=== PATIENT | male | born 1945 | race Caucasian/White ===

== ENCOUNTER 2016-08-13 15:16 | Outpatient (CLI) | payer MEDICARE, MEDICAID ==
[2016-08-13 15:47] LABS: #Basophils 0.1 thou/uL (0.0-0.2); #Eosinphils 0.4 thou/uL (0.0-0.7); #Lymphocytes 1.8 thou/uL (1.20-3.40); #Monocytes 0.5 thou/uL (0.11-0.59); #Neutrophils 5.1 thou/uL (1.40-6.50); %Basophils 1.4 % (0.0-1.0); %Eosinophils 5.2 % (0.0-10.0); %Lymphocytes 22.1 % (21.0-51.0); %Monocytes 6.7 % (0.0-10.0); %Neutrophils 64.6 % (42.0-75.0); Hemoglobin 14.6 g/dL (14.0-18.0); Mean Corpuscular HGB CONC 34.9 g/dL (32.0-36.0); Mean Corpuscular Hemoglobin 30.4 pg (27.0-31.0); Mean Corpuscular Volume 87.1 fl (80.0-94.0); Mean Platelet Volume 10.8 fL (7.4-10.4); Platelet Count 176 thou/uL (130-400); RBC Distribution Width 11.9 % (11.5-14.5); White Blood Cell (WBC) Count 7.9 thou/uL (4.8-10.8)
[2016-08-13 16:12] LABS: Hemoglobin A1c 6.2 % (4.0-6.0)
[2016-08-13 16:17] LABS: ALT (SGPT) 18 U/L (8-55); AST (SGOT) 23 U/L (5-34); Albumin 4.3 g/dL (3.4-4.8); Alkaline Phosphatase 82 U/L (40-150); Anion Gap 15 mmol/L (10-20); BUN (Urea Nitrogen) 14 mg/dL (8.4-25.7); Bilirubin, Total 0.6 mg/dL (0.2-1.2); Calc. Creatinine Clearance 0 mL/min (70-130); Calcium 9.5 mg/dL (7.8-10.44); Carbon Dioxide 25 mmol/L (23-31); Cardiac Risk 4.3 (Less than 4.5); Chloride 107 mmol/L (98-107); Cholesterol 169 mg/dl (< 200 Desired); Estimated GFR-MDRD 44; Globulin 2.6 g/dL (2.4-3.5); Glucose 120 mg/dL (80-115); HDL Cholesterol 39 mg/dL (>60 Neg Risk); LDL Cholesterol, Calculated 64 mg/dL; Potassium 5.7 mmol/L (3.5-5.1); Protein, Total 6.9 g/dL (5.8-8.1); Sodium 141 mmol/L (136-145); Triglycerides 329 mg/dL (Less than 150)
== END 2016-08-13 15:17 | disposition home or self-care (01) ==
LOC: HPCALD 15:16
PROVIDERS: ATTEND Family Medicine
DX: Z12.5 Encounter for screening for malignant neoplasm of prostate (principal); E11.9 Type 2 diabetes mellitus without complications; I10 Essential (primary) hypertension
CPT/HCPCS: 36415; 80053; 80061; 83036; 85025; G0103

== ENCOUNTER 2017-06-07 15:22 | Outpatient (CLI) | payer MEDICARE, MEDICAID ==
--- NOTE | 2017-06-07 16:09 | RAD ---
RIGHT FOOT 3 VIEWS: HISTORY: A 71-year-old male with a history of right heel pain. FINDINGS: Small calcaneal plantar and slightly more moderate-size calcaneal Achilles enthesophytes are noted. No acute fracture or dislocation or other acute process. IMPRESSION: Calcaneal plantar and Achilles enthesophytes. No other acute process. POS: [facility]
--- NOTE | 2017-06-07 16:27 | RAD ---
RADIOGRAPH RIGHT HIP 2 VIEWS: DATE: 06/07/17. HISTORY: A 71-year-old male with right hip pain, M25.551. COMPARISON: None available. FINDINGS: Femoral head contour is maintained. No subcapital osteophytes. Mild bony hypertrophy of the acetabu lar roof. Hip joint space maintained. No major pathology of right SI joint. No fracture or disloca tion. Small subchondral cysts at the superolateral aspect of the acetabulum. IMPRESSION: 1. 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 2. Otherwise, negative. POS: [facility]
--- NOTE | 2017-06-07 17:17 | RAD ---
RADIOGRAPH RIGHT FEMUR TWO VIEWS: 06/07/2017 HISTORY: A 71-year-old male with right thigh pain. FINDINGS: No osteolytic lesion, osteoblastic lesion, permeative lesion, periosteal elevation, or fracture invol ving the femoral diaphysis. No adjacent soft tissue calcifications. IMPRESSION: Negative. POS: [facility]
== END 2017-06-07 15:23 | disposition home or self-care (01) ==
LOC: BURRAD 15:22
PROVIDERS: ATTEND Family Medicine
DX: M25.551 Pain in right hip (principal); M79.671 Pain in right foot; M16.11 Unilateral primary osteoarthritis, right hip; M77.51 Other enthesopathy of right foot and ankle

== ENCOUNTER 2018-06-16 10:00 | Outpatient (CLI) | payer MEDICARE, MEDICAID ==
--- NOTE | 2018-06-16 19:58 | ULT ---
BILATERAL RENAL ULTRASOUND 06/16/18 Ultrasonography of the urinary tract was performed for evaluation of this patient with chronic kidney disease. The right kidney measures 8.4 x 4.6 x 4.0 cm. The cortex does not seem significantly thinned or echog enic. No solid masses were seen. There is a small 1.5 cm cyst associated with the kidney. No hydronep hrosis is present. The left kidney measures 9.2 x 4.6 x 3.5 cm. It similarly shows no cortical thinning or increased ech ogenicity. The bladder wall is uniformly thick at 4 mm, but the bladder is not well distended so this could be a spurious result. IMPRESSION: No evidence of acute urinary tract obstruction or other pathology of concern. Mild bladder wall thick ening that could be due to underdistention. POS: [facility]
== END 2018-06-16 10:01 | disposition home or self-care (01) ==
LOC: BURULT 10:00
PROVIDERS: ATTEND Internal Medicine Nephrology
DX: I12.9 Hypertensive chronic kidney disease with stage 1 through stage 4 chronic kidney disease, or unspecified chronic kidney disease (principal); N18.3 Chronic kidney disease, stage 3 (moderate); N32.89 Other specified disorders of bladder
CPT/HCPCS: 76770

== ENCOUNTER 2021-05-23 22:06 | Emergency (ER) | payer MEDICARE, MEDICAID ==
[2021-05-23] MEDS ORDERED: Metoclopramide HCl 10 MG/2 ML VIAL ONE (22:55)
[2021-05-23] MEDS ORDERED: diphenhydrAMINE 50 MG/ML VIAL ONE (22:56)
[2021-05-23] MEDS ORDERED: Dexamethasone 10 MG/ML VIAL ONE (22:56)
[2021-05-23 23:12] LABS: #Basophils 0.1 thou/uL (0.0-0.2); #Eosinphils 0.4 thou/uL (0.0-0.7); #Lymphocytes 1.7 thou/uL (1.20-3.40); #Monocytes 0.6 thou/uL (0.11-0.59); #Neutrophils 5.3 thou/uL (1.40-6.50); %Basophils 1.7 % (0.0-1.0); %Eosinophils 5.2 % (0.0-10.0); %Lymphocytes 21.2 % (21.0-51.0); Hemoglobin 15.7 g/dL (14.0-18.0); Mean Corpuscular HGB CONC 35.3 g/dL (32.0-36.0); Mean Corpuscular Hemoglobin 29.3 pg (27.0-31.0); Mean Corpuscular Volume 82.9 fL (78.0-98.0); Mean Platelet Volume 9.6 fL (7.4-10.4); Platelet Count 184 thou/uL (130-400); RBC Distribution Width 11.4 % (11.5-14.5); Red Blood Cell (RBC) Count 5.36 mill/uL (4.70-6.10); White Blood Cell (WBC) Count 8.2 thou/uL (4.8-10.8)
[2021-05-23 23:20] LABS: INR-International Normal Ratio 1.1; Prothrombin Time 14.1 sec (12.0-14.7)
[2021-05-23 23:52] LABS: ALT (SGPT) 10 U/L (8-55); AST (SGOT) 15 U/L (5-34); Albumin 4.1 g/dL (3.4-4.8); Alkaline Phosphatase 96 U/L (40-110); Anion Gap 17 mmol/L (10-20); BUN (Urea Nitrogen) 17 mg/dL (8.4-25.7); Bilirubin, Total 0.8 mg/dL (0.2-1.2); Calc. Creatinine Clearance 0 mL/min (70-130); Calcium 9.2 mg/dL (7.8-10.44); Carbon Dioxide 20 mmol/L (23-31); Chloride 106 mmol/L (98-107); Globulin 3.5 g/dL (2.4-3.5); Glucose 205 mg/dL (83-110); Potassium 4.2 mmol/L (3.5-5.1); Protein, Total 7.6 g/dL (5.8-8.1); Sodium 139 mmol/L (136-145)
== END 2021-05-23 23:54 | disposition home or self-care (01) ==
LOC: BURERS 22:06
DX: R51.9 Headache, unspecified (principal); I10 Essential (primary) hypertension; Z79.899 Other long term (current) drug therapy
CPT/HCPCS: 36415; 70450; 80053; 84484; 85025; 85610; 93005; 96374; 96375; J1100; J1200; J2765

== ENCOUNTER 2021-08-11 21:04 | Emergency (ER) | payer MEDICARE, OTHER ==
[2021-08-11] MEDS ORDERED: Ondansetron PF 4 MG/2 ML Vial ONE (21:10)
[2021-08-11 21:33] LABS: #Basophils 0.1 thou/uL (0.0-0.2); #Eosinphils 0.4 thou/uL (0.0-0.7); #Lymphocytes 1.8 thou/uL (1.20-3.40); #Monocytes 0.5 thou/uL (0.11-0.59); #Neutrophils 3.6 thou/uL (1.40-6.50); %Basophils 1.8 % (0.0-1.0); %Eosinophils 5.6 % (0.0-10.0); %Lymphocytes 27.6 % (21.0-51.0); %Monocytes 8.4 % (0.0-10.0); %Neutrophils 56.5 % (42.0-75.0); Hemoglobin 14.7 g/dL (14.0-18.0); Mean Corpuscular HGB CONC 35.4 g/dL (32.0-36.0); Mean Corpuscular Hemoglobin 28.8 pg (27.0-31.0); Mean Corpuscular Volume 81.4 fL (78.0-98.0); Mean Platelet Volume 9.1 fL (7.4-10.4); Platelet Count 138 thou/uL (130-400); RBC Distribution Width 11.7 % (11.5-14.5); Red Blood Cell (RBC) Count 5.11 mill/uL (4.70-6.10); White Blood Cell (WBC) Count 6.3 thou/uL (4.8-10.8)
[2021-08-11 21:38] LABS: INR-International Normal Ratio 1.1; Prothrombin Time 14.7 sec (12.0-14.7)
[2021-08-11 21:40] LABS: Bilirubin Negative (Negative); Blood, Urine Small (Negative); Clarity Clear (Clear); Glucose, Urine (Dipstick) 100 mg/dL (Negative); Ketone, Urine Negative (Negative); Leukocyte Negative (Negative); Nitrite Negative (Negative); Protein, Urine (Dipstick) > or equal to 300 mg/dL (Neg-Trace); Urobilinogen 0.2 mg/dL (Less than 2)
[2021-08-11 21:49] LABS: ALT (SGPT) 9 U/L (8-55); AST (SGOT) 14 U/L (5-34); Albumin 4.5 g/dL (3.4-4.8); Alkaline Phosphatase 97 U/L (40-110); Anion Gap 15 mmol/L (10-20); BUN (Urea Nitrogen) 19 mg/dL (8.4-25.7); Bilirubin, Total 0.5 mg/dL (0.2-1.2); Calc. Creatinine Clearance 0 mL/min (70-130); Calcium 9.1 mg/dL (7.8-10.44); Carbon Dioxide 20 mmol/L (23-31); Chloride 108 mmol/L (98-107); Estimated GFR 35; Glucose 121 mg/dL (83-110); Lipase 54 U/L (8-78); Potassium 4.7 mmol/L (3.5-5.1); Protein, Total 7.5 g/dL (5.8-8.1); Sodium 138 mmol/L (136-145)
[2021-08-11 21:50] LABS: Bacteria/HPF Rare-Few HPF (None Seen); Mucous/LPF 2+ LPF (<2+); RBC/HPF 0-3 HPF (0-3); Squamous Epithelial None Seen HPF (0-3); WBC/HPF 0-3 HPF (0-3)
[2021-08-11] MEDS ORDERED: Meclizine HCl 25 MG TAB ONE (22:28)
[2021-08-11] MEDS ORDERED: Aspirin Chewable 81 MG TAB ONE (22:28)
[2021-08-11] MEDS ORDERED: Mag-Al Plus 1200 MG/1200 MG/120 MG/30 ML UDCUP ONE (23:27)
[2021-08-11] MEDS ORDERED: Lidocaine Viscous Sol 2% 15 ml UD Cup ONE (23:28)
== END 2021-08-11 23:57 | disposition home or self-care (01) ==
LOC: BURERS 21:04
DX: R42 Dizziness and giddiness (principal); I10 Essential (primary) hypertension; R11.10 Vomiting, unspecified; E11.9 Type 2 diabetes mellitus without complications; K21.9 Gastro-esophageal reflux disease without esophagitis; Z79.899 Other long term (current) drug therapy; Z79.84 Long term (current) use of oral hypoglycemic drugs
CPT/HCPCS: 70450; 80053; 81003; 81015; 83605; 83690; 84484; 85025; 85610; 93005; 96374; J2405

== ENCOUNTER 2021-09-23 16:18 | Outpatient (CLI) | payer OTHER | END 2021-09-23 16:19 | disposition home or self-care (01) | LOC: BURRAD 16:18 | PROVIDERS: ATTEND Family Medicine | DX: M70.62 Trochanteric bursitis, left hip (principal); M70.61 Trochanteric bursitis, right hip; M54.50 Low back pain, unspecified; M47.816 Spondylosis without myelopathy or radiculopathy, lumbar region | CPT/HCPCS: 72100 ==